=== PATIENT | male | born 1980 | race Two or more races ===

== ENCOUNTER 2020-02-16 12:03 | Emergency (ER) | payer SELFPAY ==
[~2020-02-16] VITALS: Ht 167.6 cm; Wt 86.2 kg
[2020-02-16] MEDS ORDERED: LIDOCAINE HCL 2% TOP JELLY 5ML TOP ONE (15:00)
[2020-02-16 16:00] VITALS: BP 135/82
== END 2020-02-16 16:13 | disposition home or self-care (01) ==
LOC: ER 12:03
DX: S56.193A Other injury of flexor muscle, fascia and tendon of right middle finger at forearm level, initial encounter (principal); X58.XXXA Exposure to other specified factors, initial encounter; Y93.89 Activity, other specified; Y92.89 Other specified places as the place of occurrence of the external cause; Y99.8 Other external cause status
CPT/HCPCS: 73130